=== PATIENT | female | born 1970 | race African-American/Black ===

== ENCOUNTER 2016-08-24 11:43 | Emergency (ER) | payer MEDICAID ==
[~2016-08-24] VITALS: Ht 165.1 cm; Wt 80.0 kg
[~2016-08-24 11:43] MED LIST: ACET-2178 PO; METH500T PO
[2016-08-24] MEDS ORDERED: KETOROLAC 60MG/2ML VIAL IM ONE (13:30)
[2016-08-24 13:45] VITALS: BP 158/100
== END 2016-08-24 15:01 | disposition home or self-care (01) ==
LOC: ER 13:12
DX: M54.5 Low back pain (principal); F17.200 Nicotine dependence, unspecified, uncomplicated; Z90.49 Acquired absence of other specified parts of digestive tract; Z90.710 Acquired absence of both cervix and uterus; Z87.19 Personal history of other diseases of the digestive system
CPT/HCPCS: 72114; 99285; J1885; Z7610

== ENCOUNTER → 2017-08-02 | Outpatient (CLI) | payer MEDICARE, MEDICAID | END | disposition home or self-care (01) | LOC: MRI 11:12 | PROVIDERS: ATTEND Neurological Surgery | DX: M48.061 Spinal stenosis, lumbar region without neurogenic claudication (principal); M48.07 Spinal stenosis, lumbosacral region; M47.896 Other spondylosis, lumbar region | CPT/HCPCS: 72114; 72148 ==

== ENCOUNTER 2018-03-28 11:11 | Inpatient (IN) | payer MEDICARE, MEDICAID ==
[~2018-03-28] VITALS: Ht 165.1 cm; Wt 90.7 kg
[2018-03-28] MEDS ORDERED: MORPHINE SULFATE 4 MG/ML CPJ (NOT FOR IM USE) IV STA (13:39)
[2018-03-28] MEDS ORDERED: SODIUM CHLORIDE 0.9% 1,000 ML IV ONE (13:39)
[2018-03-28] MEDS ORDERED: ONDANSETRON HCL 4MG/2ML INJ IV STA (13:39)
[2018-03-28 14:31] LABS: BASOPHILS % 0.5 % (0.0-2.0); EOSINOPHILS % 1.8 % (0.0-5.0); HEMATOCRIT. 41.1 % (36.0-48.0); HEMOGLOBIN. 13.9 g/dL (12.0-16.0); LYMPHOCYTES % 36.2 % (20.0-50.0); MEAN CORPUSCULAR HEMOGLOBIN 32.6 pg (28.0-32.0); MEAN CORPUSCULAR VOLUME 96.4 fL (81.0-99.0); MEAN PLATELET VOLUME 8.8 fl (7.4-10.4); MONOCYTES % 6.7 % (2.0-8.0); NEUTROPHILS % 54.8 % (40.0-76.0); PLATELET 272 x1000/uL (130-400); RED BLOOD CELL COUNT 4.26 mill/uL (4.2-5.4); RED CELL DISTRIBUTION WIDTH 13.4 % (11.6-14.6)
[2018-03-28 14:38] LABS: PROTHROMBIN TIME 9.8 sec (9.1-11.1)
[2018-03-28 14:40] LABS: CHLORIDE 106 mEq/L (98-107)
[2018-03-28] MEDS ORDERED: LORAZEPAM 1MG TABLET PO ONE (16:00)
[2018-03-28] MEDS ORDERED: LORAZEPAM 2MG/ML CPJ IV ONE (16:00)
[2018-03-28] MEDS ORDERED: MORPHINE SULFATE 4 MG/ML CPJ (NOT FOR IM USE) IV ONE (17:45)
[2018-03-28] MEDS ORDERED: CLONIDINE 0.2MG TABLET PO ONE (21:45)
[2018-03-28] MEDS ORDERED: HYDROMORPHONE HCL/PF 2MG/ML CPJ IV SCH (22:00)
[2018-03-28] MEDS ORDERED: NA PHOS,M-B/NA PHOS,DI-BA ENEMA 118ML PR PRN (22:30)
[2018-03-28] MEDS ORDERED: ACETAMINOPHEN 325MG TABLET PO PRN (22:30)
[2018-03-29] MEDS: HYDROMORPHONE HCL/PF 2MG/ML CPJ IV PRN ×5 (03:33→21:12)
[2018-03-29] MEDS: ONDANSETRON HCL 4MG/2ML INJ IV PRN ×3 (03:59→17:35)
[2018-03-29 04:00] VITALS: BP 147/97
[2018-03-29] MEDS ORDERED: METO-293 MT (04:21)
[2018-03-29] MEDS ORDERED: BENA40TA9 MT (04:21)
[2018-03-29] MEDS ORDERED: AMLO10TA80 MT (04:21)
[2018-03-29] MEDS ORDERED: DULO30CA51 MT (04:21)
[2018-03-29] MEDS ORDERED: GABA-531 MT (04:21)
[2018-03-29] MEDS ORDERED: INDO25CA MT (04:21)
[2018-03-29] MEDS ORDERED: ASPI-1159 MT (04:21)
[2018-03-29] MEDS ORDERED: IBUP-2029 MT (04:21)
[2018-03-29] MEDS ORDERED: CLON0.2T MT (04:21)
[2018-03-29 07:24] LABS: BASOPHILS % 0.8 % (0.0-2.0); EOSINOPHILS % 1.6 % (0.0-5.0); HEMATOCRIT. 39.4 % (36.0-48.0); HEMOGLOBIN. 13.3 g/dL (12.0-16.0); LYMPHOCYTES % 36.2 % (20.0-50.0); MEAN CORPUSCULAR HEMOGLOBIN 32.9 pg (28.0-32.0); MEAN CORPUSCULAR VOLUME 97.5 fL (81.0-99.0); MEAN PLATELET VOLUME 9.6 fl (7.4-10.4); MONOCYTES % 7.6 % (2.0-8.0); NEUTROPHILS % 53.8 % (40.0-76.0); PLATELET 210 x1000/uL (130-400); RED BLOOD CELL COUNT 4.04 mill/uL (4.2-5.4); RED CELL DISTRIBUTION WIDTH 13.2 % (11.6-14.6)
[2018-03-29 07:53] LABS: CHLORIDE 109 mEq/L (98-107)
[2018-03-29 08:00] VITALS: BP 180/115
[2018-03-29] MEDS ORDERED: DIAZ10TA4 MT (08:03)
[2018-03-29] MEDS: AMLODIPINE 10MG TABLET PO SCH (09:08)
[2018-03-29] MEDS: DULOXETINE HCL 30MG DR CAPSULE PO SCH (11:56)
[2018-03-29] MEDS: DIAZEPAM 5 MG TABLET PO PRN ×2 (11:56→21:05)
[2018-03-29 12:00] VITALS: BP 138/88
[2018-03-29] MEDS: METOCLOPRAMIDE HCL 10MG/2ML VIAL IV PRN ×2 (13:43→22:05)
[2018-03-29] MEDS ORDERED: INDOMETHACIN 25MG CAPSULE PO SCH (14:00)
[2018-03-29] MEDS ORDERED: GABAPENTIN 300MG CAPSULE PO SCH (14:00)
[2018-03-29] MEDS: CLONIDINE 0.1MG TABLET PO PRN (15:45)
[2018-03-29 16:00] VITALS: BP 179/105
[2018-03-29 20:00] VITALS: BP 147/91
[2018-03-30] VITALS: BP_SYST 133; BP_SYST 137; BP_DIAS 90; BP_DIAS 94
[2018-03-30] MEDS: HYDROMORPHONE HCL/PF 2MG/ML CPJ IV PRN ×6 (00:27→21:13)
[2018-03-30 04:00] VITALS: BP 146/90
[2018-03-30] MEDS: ONDANSETRON HCL 4MG/2ML INJ IV PRN ×3 (07:58→21:07)
[2018-03-30 08:00] VITALS: BP 159/91
[2018-03-30] MEDS: AMLODIPINE 10MG TABLET PO SCH (08:21)
[2018-03-30] MEDS: METHOCARBAMOL 500MG TABLET PO SCH (08:21)
[2018-03-30] MEDS: DULOXETINE HCL 30MG DR CAPSULE PO SCH (08:21)
[2018-03-30] MEDS ORDERED: AMLODIPINE 10MG TABLET PO SCH (09:00)
[2018-03-30] MEDS: DIAZEPAM 5 MG TABLET PO PRN ×2 (10:58→21:07)
[2018-03-30] MEDS: METOCLOPRAMIDE HCL 10MG/2ML VIAL IV PRN ×2 (11:31→18:48)
[2018-03-30 12:00] VITALS: BP 141/98
[2018-03-30] MEDS: CLONIDINE 0.1MG TABLET PO PRN (13:40)
[2018-03-30 16:00] VITALS: BP 148/96
[2018-03-30] MEDS: HYDROCODONE/ACETAMINOPHEN 5/325MG TABLET PO PRN (17:10)
[2018-03-31] VITALS: BP 141/91
[2018-03-31] MEDS: METOCLOPRAMIDE HCL 10MG/2ML VIAL IV PRN ×3 (00:23→15:41)
[2018-03-31] MEDS: HYDROMORPHONE HCL/PF 2MG/ML CPJ IV PRN ×6 (00:28→23:21)
[2018-03-31] MEDS: ONDANSETRON HCL 4MG/2ML INJ IV PRN ×2 (03:56→18:08)
[2018-03-31 04:00] VITALS: BP 175/99
[2018-03-31] MEDS: CLONIDINE 0.1MG TABLET PO PRN ×3 (06:02→20:52)
[2018-03-31 08:00] VITALS: BP 158/105
[2018-03-31] MEDS: AMLODIPINE 10MG TABLET PO SCH (09:01)
[2018-03-31] MEDS: HYDROCHLOROTHIAZIDE 25MG TABLET PO SCH (09:02)
[2018-03-31] MEDS: METHOCARBAMOL 500MG TABLET PO SCH (09:02)
[2018-03-31] MEDS: DULOXETINE HCL 30MG DR CAPSULE PO SCH (09:02)
[2018-03-31] MEDS ORDERED: HYDROMORPHONE HCL/PF 2MG/ML CPJ IV SCH (11:45)
[2018-03-31 12:00] VITALS: BP 151/112
[2018-03-31] MEDS: HYDROCODONE/ACETAMINOPHEN 5/325MG TABLET PO PRN ×2 (13:12→20:46)
[2018-03-31] MEDS ORDERED: SODIUM BICARBONATE 4% (2.4MEQ) 5ML VIAL IV ONE (13:28)
[2018-03-31] MEDS ORDERED: LIDOCAINE HCL 1% 20ML VIAL (Pyxis) INJ ONE (13:29)
[2018-03-31] MEDS: DIAZEPAM 5 MG TABLET PO PRN (15:42)
[2018-03-31 16:00] VITALS: BP 146/91
[2018-03-31 20:00] VITALS: BP 149/107
[2018-04-01] VITALS (7 sets, daily range): BP systolic 124–158; BP diastolic 43–99
[2018-04-01] MEDS: HYDROMORPHONE HCL/PF 2MG/ML CPJ IV PRN ×6 (03:35→21:24)
[2018-04-01] MEDS: DIAZEPAM 5 MG TABLET PO PRN ×2 (04:36→15:17)
[2018-04-01] MEDS: METOCLOPRAMIDE HCL 10MG/2ML VIAL IV PRN ×3 (08:06→21:23)
[2018-04-01] MEDS: HYDROCHLOROTHIAZIDE 25MG TABLET PO SCH (08:07)
[2018-04-01] MEDS: DULOXETINE HCL 30MG DR CAPSULE PO SCH (08:07)
[2018-04-01] MEDS: METHOCARBAMOL 500MG TABLET PO SCH (08:07)
[2018-04-01] MEDS: AMLODIPINE 10MG TABLET PO SCH (08:07)
[2018-04-01] MEDS: HYDROCODONE/ACETAMINOPHEN 5/325MG TABLET PO PRN (10:33)
[2018-04-01] MEDS: ONDANSETRON HCL 4MG/2ML INJ IV PRN ×2 (12:40→18:06)
[2018-04-01] MEDS: DOCUSATE SODIUM 100MG CAPSULE PO PRN (21:23)
[2018-04-02] VITALS (8 sets, daily range): BP systolic 101–156; BP diastolic 59–113
[2018-04-02] MEDS: ONDANSETRON HCL 4MG/2ML INJ IV PRN ×3 (00:43→21:48)
[2018-04-02] MEDS: DIAZEPAM 5 MG TABLET PO PRN ×3 (00:43→21:58)
[2018-04-02] MEDS: HYDROMORPHONE HCL/PF 2MG/ML CPJ IV PRN ×4 (00:43→10:44)
[2018-04-02] MEDS: METOCLOPRAMIDE HCL 10MG/2ML VIAL IV PRN (04:06)
[2018-04-02] MEDS: METHOCARBAMOL 500MG TABLET PO SCH (08:39)
[2018-04-02] MEDS: DULOXETINE HCL 30MG DR CAPSULE PO SCH (08:39)
[2018-04-02] MEDS: HYDROCHLOROTHIAZIDE 25MG TABLET PO SCH (08:40)
[2018-04-02] MEDS: AMLODIPINE 10MG TABLET PO SCH (08:40)
[2018-04-02] MEDS: HYDROCODONE/ACETAMINOPHEN 5/325MG TABLET PO PRN (12:16)
[2018-04-02] MEDS: CLONIDINE 0.1MG TABLET PO PRN (15:33)
[2018-04-02] MEDS: CYCLOBENZAPRINE 10MG TABLET PO SCH ×2 (15:53→21:45)
[2018-04-02] MEDS: HYDROCODONE/ACETAMINOPHEN 10/325MG TABLET PO PRN (16:24)
[2018-04-02] MEDS: OXYCODONE HCL 10MG TABLET SR 12HR PO SCH (21:45)
[2018-04-03] MEDS: CLONIDINE 0.1MG TABLET PO PRN (02:00)
[2018-04-03] MEDS: HYDROCODONE/ACETAMINOPHEN 10/325MG TABLET PO PRN ×3 (02:00→18:23)
[2018-04-03 04:00] VITALS: BP 104/83
[2018-04-03] MEDS: CYCLOBENZAPRINE 10MG TABLET PO SCH ×3 (06:23→21:00)
[2018-04-03 08:00] VITALS: BP 123/83
[2018-04-03] MEDS: HYDROCHLOROTHIAZIDE 25MG TABLET PO SCH (08:10)
[2018-04-03] MEDS: OXYCODONE HCL 10MG TABLET SR 12HR PO SCH ×2 (08:11→20:59)
[2018-04-03] MEDS: AMLODIPINE 10MG TABLET PO SCH (08:11)
[2018-04-03] MEDS: DULOXETINE HCL 30MG DR CAPSULE PO SCH (08:11)
[2018-04-03] MEDS: METHOCARBAMOL 500MG TABLET PO SCH (08:17)
[2018-04-03] MEDS: ONDANSETRON HCL 4MG/2ML INJ IV PRN ×3 (08:17→20:59)
[2018-04-03] MEDS: DIAZEPAM 5 MG TABLET PO PRN ×2 (11:58→21:00)
[2018-04-03 12:00] VITALS: BP 119/88
[2018-04-03] MEDS ORDERED: MORPHINE SULFATE 4 MG/ML CPJ (NOT FOR IM USE) IV SCH (14:15)
[2018-04-03 16:00] VITALS: BP 134/93
[2018-04-03] MEDS: DOCUSATE SODIUM 100MG CAPSULE PO PRN (18:23)
[2018-04-03 20:00] VITALS: BP 111/80
[2018-04-04] VITALS: BP 123/80
[2018-04-04] MEDS: HYDROCODONE/ACETAMINOPHEN 10/325MG TABLET PO PRN ×3 (00:36→10:40)
[2018-04-04] MEDS: METOCLOPRAMIDE HCL 10MG/2ML VIAL IV PRN ×2 (00:41→08:54)
[2018-04-04 04:50] VITALS: BP 118/84
[2018-04-04] MEDS: CYCLOBENZAPRINE 10MG TABLET PO SCH (05:41)
[2018-04-04 06:29] VITALS: BP 118/76
[2018-04-04] MEDS: ONDANSETRON HCL 4MG/2ML INJ IV PRN ×2 (06:34→12:32)
[2018-04-04 08:00] VITALS: BP 145/99
[2018-04-04] MEDS: HYDROCHLOROTHIAZIDE 25MG TABLET PO SCH (08:45)
[2018-04-04] MEDS: DULOXETINE HCL 30MG DR CAPSULE PO SCH (08:46)
[2018-04-04] MEDS: METHOCARBAMOL 500MG TABLET PO SCH (08:46)
[2018-04-04] MEDS: AMLODIPINE 10MG TABLET PO SCH (08:46)
[2018-04-04] MEDS: OXYCODONE HCL 10MG TABLET SR 12HR PO SCH (08:46)
[2018-04-04] MEDS ORDERED: POLYETHYLENE GLYCOL 3350 (17GM) 1 DOSE PACK PO SCH (10:15)
[2018-04-04] MEDS ORDERED: LACTULOSE 20G/30ML UDC PO PRN (10:15)
[2018-04-04] MEDS: DIAZEPAM 5 MG TABLET PO PRN (11:40)
[2018-04-04 12:00] VITALS: BP 152/104
[2018-04-04] MEDS ORDERED: MORPHINE SULFATE 4 MG/ML CPJ (NOT FOR IM USE) IV SCH (12:30)
[2018-04-04 12:32] VITALS: BP 143/105
== END 2018-04-04 14:20 | DRG 552 ==
LOC: ER 11:11 → 6EST 17:39 → EDBEDREQSVC 17:40 → EDBEDREQTM 17:40 → EDBEDREQ 17:40 → SUPCPDRO 22:16 → ENRESERV 03-29 02:14
PROVIDERS: ADMIT Hospitalist; ATTEND Hospitalist
PROC: 02HV33Z Insertion of Infusion Device into Superior Vena Cava, Percutaneous Approach (ICD-10-PCS; principal; 2018-03-31)
PROC: B5181ZA Fluoroscopy of Superior Vena Cava using Low Osmolar Contrast, Guidance (ICD-10-PCS; 2018-03-31)
PROC: B548ZZA Ultrasonography of Superior Vena Cava, Guidance (ICD-10-PCS; 2018-03-31)
DX: M47.816 Spondylosis without myelopathy or radiculopathy, lumbar region (principal); M54.5 Low back pain; I16.0 Hypertensive urgency; G89.4 Chronic pain syndrome; I10 Essential (primary) hypertension; F17.200 Nicotine dependence, unspecified, uncomplicated; Z86.73 Personal history of transient ischemic attack (TIA), and cerebral infarction without residual deficits; Z90.710 Acquired absence of both cervix and uterus; Z90.49 Acquired absence of other specified parts of digestive tract; Z98.1 Arthrodesis status; Z79.899 Other long term (current) drug therapy; Z79.82 Long term (current) use of aspirin
CPT/HCPCS: 36415; 36569; 71045; 72114; 72148; 76937; 77001; 86850; 86900; 93005; 96361; 96374; 96375; 96376; 97110; 97116; 97162; 97530; 97535; 99285; C1725; C1893; J1170; J2060; J2270; J2405; J2765; J3490; J7030

== ENCOUNTER 2018-06-16 05:17 | Inpatient (IN) | payer MEDICARE, MEDICAID ==
[~2018-06-16] VITALS: Ht 165.1 cm; Wt 90.7 kg
[~2018-06-16 05:17] MED LIST changes: +AMLO10TA80 MT; +ASPI-1159 MT; +BENA40TA9 MT; +CLON0.2T MT; +DIAZ10TA4 MT; +DULO30CA51 MT; +GABA-531 MT; +IBUP-2029 MT; -METH500T PO; +METO-293 MT
[2018-06-16] MEDS ORDERED: GELATIN SPONGE,ABSORBABLE 12-7MM SPONGE ONE (06:46)
[2018-06-16] MEDS ORDERED: THROMBIN (BOVINE) 5000 UNITS/VIAL TOP ONE (06:47)
[2018-06-16] MEDS ORDERED: BACITRACIN 50,000 UNITS/VIAL ONE (06:47)
[2018-06-16] MEDS ORDERED: LIDOCAINE HCL/EPINEPHRINE 1%-EPI 1:100,000 20 ML VIAL ONE (06:47)
[2018-06-16] MEDS ORDERED: SODIUM CHLORIDE 0.9% 1,000 ML ONE (06:47)
[2018-06-16 06:53] LABS: CLARITY URINE CLEAR (CLEAR); COLOR URINE YELLOW (YELLOW); KETONES URINE NEGATIVE (NEGATIVE); LEUKOCYTE ESTERASE URINE NEGATIVE (NEGATIVE); NITRITE URINE NEGATIVE (NEGATIVE); OCCULT BLOOD URINE NEGATIVE (NEGATIVE); PH URINE 5.5 (4.5-8.0); PROTEIN URINE NEGATIVE (NEGATIVE); SPECIFIC GRAVITY URINE 1.019 (1.005-1.030); UROBILINOGEN URINE 0.2 E.U./dL (0.2-1.0)
[2018-06-16 06:57] LABS: BASOPHILS % 1.1 % (0.0-2.0); EOSINOPHILS % 1.7 % (0.0-5.0); HEMATOCRIT. 41.2 % (36.0-48.0); HEMOGLOBIN. 13.8 g/dL (12.0-16.0); LYMPHOCYTES % 19.6 % (20.0-50.0); MEAN CORPUSCULAR HEMOGLOBIN 32.6 pg (28.0-32.0); MEAN CORPUSCULAR VOLUME 97.1 fL (81.0-99.0); MEAN PLATELET VOLUME 9.5 fl (7.4-10.4); MONOCYTES % 7.9 % (2.0-8.0); NEUTROPHILS % 69.7 % (40.0-76.0); PLATELET 265 x1000/uL (130-400); RED BLOOD CELL COUNT 4.24 mill/uL (4.2-5.4)
[2018-06-16 07:00] LABS: CHLORIDE 110 mEq/L (98-107); PARTIAL THROMBOPLASTIN TIME 32.8 sec (23.4-31.0); PROTHROMBIN TIME 9.7 sec (9.1-11.1)
[2018-06-16] MEDS ORDERED: SODIUM BICARBONATE 4% (2.4MEQ) 5ML VIAL IV ONE (07:20)
[2018-06-16] MEDS ORDERED: LIDOCAINE HCL 1% 20ML VIAL (Pyxis) INJ ONE (07:21)
[2018-06-16] MEDS ORDERED: ERGO400C PO (08:16)
[2018-06-16] MEDS ORDERED: CALC-25 PO (08:16)
[2018-06-16] MEDS ORDERED: HYDR-4005 PO (08:16)
[2018-06-16] MEDS ORDERED: CHOL500010 PO (08:16)
[2018-06-16] MEDS ORDERED: CYCL10TA7 PO (08:23)
[2018-06-16] MEDS ORDERED: MULT-1146 PO (08:23)
[2018-06-16] MEDS ORDERED: ONDANSETRON HCL 4MG/2ML INJ IV PRN (09:15)
[2018-06-16] MEDS ORDERED: MORPHINE SULFATE 4 MG/ML CPJ (NOT FOR IM USE) IV PRN (09:15)
[2018-06-16] MEDS ORDERED: FENTANYL CITRATE/PF 50MCG/ML 2ML VIAL IV PRN (09:15)
[2018-06-16] MEDS ORDERED: MEPERIDINE HCL/PF 25MG/ML CPJ IV PRN (09:15)
[2018-06-16] MEDS ORDERED: HYDROMORPHONE PCA 10MG/50ML IV PRN (10:16)
[2018-06-16] MEDS: HYDROMORPHONE HCL/PF 2MG/ML CPJ IV PRN ×2 (10:20→10:40)
[2018-06-16] MEDS ORDERED: ONDANSETRON INJ IV PRN (10:30)
[2018-06-16] MEDS ORDERED: NALOXONE INJ IV PRN (10:30)
[2018-06-16] MEDS ORDERED: DIPHENHYDRAMINE INJ IV PRN (10:30)
[2018-06-16] MEDS: DEXAMETHASONE 4MG/ML 1ML VIAL IV SCH ×3 (11:06→23:24)
[2018-06-16] MEDS ORDERED: DEXAMETHASONE 4MG/ML 1ML VIAL ONE (11:12)
[2018-06-16 11:50] VITALS: BP 111/74
[2018-06-16 12:00] VITALS: BP 111/74
[2018-06-16 16:00] VITALS: BP 112/69
[2018-06-16] MEDS ORDERED: CEFAZOLIN 1000MG PREMIX 50 ML IV SCH (16:00)
[2018-06-16] MEDS: DEXT 5%/0.45% NACL KCL 20MEQ/L 1,000 ML IV SCH (17:03)
[2018-06-16] MEDS: CEFAZOLIN 1000MG PREMIX 50 ML IV SCH (18:34)
[2018-06-16 20:00] VITALS: BP 112/77
[2018-06-16] MEDS ORDERED: HYDROCODONE/ACETAMINOPHEN 5/325MG TABLET PO PRN (23:00)
[2018-06-16] MEDS: DIAZEPAM 5 MG TABLET PO PRN (23:22)
[2018-06-16] MEDS: HYDROCODONE/ACETAMINOPHEN 5/325MG TABLET PO PRN (23:23)
[2018-06-17] VITALS: BP 137/93
[2018-06-17] MEDS: DEXT 5%/0.45% NACL KCL 20MEQ/L 1,000 ML IV SCH ×2 (02:16→14:10)
[2018-06-17] MEDS: CEFAZOLIN 1000MG PREMIX 50 ML IV SCH ×2 (02:16→09:55)
[2018-06-17] MEDS: HYDROCODONE/ACETAMINOPHEN 5/325MG TABLET PO PRN ×2 (03:29→14:12)
[2018-06-17 04:00] VITALS: BP 114/72
[2018-06-17] MEDS: DEXAMETHASONE 4MG/ML 1ML VIAL IV SCH ×3 (06:12→17:00)
[2018-06-17 08:00] VITALS: BP 134/93
[2018-06-17] MEDS: HYDROMORPHONE HCL/PF 2MG/ML CPJ IV PRN ×4 (08:17→20:30)
[2018-06-17] MEDS: CYCLOBENZAPRINE 10MG TABLET PO SCH ×2 (09:54→17:00)
[2018-06-17] MEDS: BENAZEPRIL 10MG TABLET PO SCH (09:54)
[2018-06-17] MEDS: DIAZEPAM 5 MG TABLET PO PRN (09:55)
[2018-06-17] MEDS: ONDANSETRON HCL 4MG/2ML INJ IV PRN ×2 (12:06→17:00)
[2018-06-17 12:12] VITALS: BP 127/81
[2018-06-17] MEDS: AMLODIPINE 10MG TABLET PO SCH (14:11)
[2018-06-17 16:23] VITALS: BP 124/75
[2018-06-17 20:00] VITALS: BP 142/88
[2018-06-17] MEDS: CLONIDINE 0.2MG TABLET PO SCH (20:30)
[2018-06-18] VITALS: BP 117/74
[2018-06-18] MEDS: DEXAMETHASONE 4MG/ML 1ML VIAL IV SCH ×5 (02:07→23:55)
[2018-06-18] MEDS: HYDROMORPHONE HCL/PF 2MG/ML CPJ IV PRN ×7 (02:07→21:26)
[2018-06-18] MEDS: ONDANSETRON HCL 4MG/2ML INJ IV PRN ×4 (02:20→21:26)
[2018-06-18] MEDS: DEXT 5%/0.45% NACL KCL 20MEQ/L 1,000 ML IV SCH ×2 (02:20→15:20)
[2018-06-18 04:00] VITALS: BP 134/85
[2018-06-18 08:00] VITALS: BP 129/91
[2018-06-18] MEDS: CYCLOBENZAPRINE 10MG TABLET PO SCH ×2 (09:04→16:04)
[2018-06-18] MEDS: BENAZEPRIL 10MG TABLET PO SCH (09:04)
[2018-06-18] MEDS: DIAZEPAM 5 MG TABLET PO PRN ×2 (10:18→23:43)
[2018-06-18 12:39] VITALS: BP 130/88
[2018-06-18] MEDS: AMLODIPINE 10MG TABLET PO SCH (13:03)
[2018-06-18 16:00] VITALS: BP 129/79
[2018-06-18] MEDS ORDERED: POTASSIUM CHLORIDE 20MEQ TABLET SR PO SCH (16:30)
[2018-06-18 20:00] VITALS: BP 142/91
[2018-06-18] MEDS: CLONIDINE 0.2MG TABLET PO SCH (20:38)
[2018-06-19] VITALS: BP 178/125
[2018-06-19] MEDS: MORPHINE SULFATE 4 MG/ML CPJ (NOT FOR IM USE) IV PRN ×7 (00:52→20:07)
[2018-06-19] MEDS: ONDANSETRON HCL 4MG/2ML INJ IV PRN ×2 (03:44→17:04)
[2018-06-19] MEDS: DEXT 5%/0.45% NACL KCL 20MEQ/L 1,000 ML IV SCH ×2 (03:56→17:05)
[2018-06-19 04:00] VITALS: BP 150/98
[2018-06-19] MEDS: DEXAMETHASONE 4MG/ML 1ML VIAL IV SCH ×4 (06:50→17:04)
[2018-06-19 08:00] VITALS: BP 137/83
[2018-06-19] MEDS: CYCLOBENZAPRINE 10MG TABLET PO SCH ×2 (09:45→16:57)
[2018-06-19] MEDS: BENAZEPRIL 10MG TABLET PO SCH (09:45)
[2018-06-19] MEDS: AMLODIPINE 10MG TABLET PO SCH (11:57)
[2018-06-19 12:00] VITALS: BP 137/83
[2018-06-19] MEDS: DIAZEPAM 5 MG TABLET PO PRN ×3 (12:29→20:07)
[2018-06-19 20:00] VITALS: BP 156/96
[2018-06-19] MEDS: CLONIDINE 0.2MG TABLET PO SCH (20:07)
[2018-06-20] VITALS: BP 135/87
[2018-06-20] MEDS: MORPHINE SULFATE 4 MG/ML CPJ (NOT FOR IM USE) IV PRN ×4 (00:41→11:51)
[2018-06-20 04:00] VITALS: BP 125/92
[2018-06-20] MEDS: DEXT 5%/0.45% NACL KCL 20MEQ/L 1,000 ML IV SCH (04:49)
[2018-06-20] MEDS: DEXAMETHASONE 4MG/ML 1ML VIAL IV SCH (05:03)
[2018-06-20] MEDS: ONDANSETRON HCL 4MG/2ML INJ IV PRN (05:03)
[2018-06-20] MEDS: BENAZEPRIL 10MG TABLET PO SCH (08:39)
[2018-06-20] MEDS: CYCLOBENZAPRINE 10MG TABLET PO SCH (08:40)
[2018-06-20] MEDS: DIAZEPAM 5 MG TABLET PO PRN (09:48)
[2018-06-20 12:36] VITALS: BP 121/84
== END 2018-06-20 12:50 | disposition home health service (06) | DRG 517 ==
LOC: OR 05:17 → 5EST 05:18 → 6EST 12:48
PROVIDERS: ADMIT Neurological Surgery; ATTEND Neurological Surgery
PROC: 0SP004Z Removal of Internal Fixation Device from Lumbar Vertebral Joint, Open Approach (ICD-10-PCS; principal; 2018-06-16)
PROC: B5181ZA Fluoroscopy of Superior Vena Cava using Low Osmolar Contrast, Guidance (ICD-10-PCS; 2018-06-16)
PROC: 02HV33Z Insertion of Infusion Device into Superior Vena Cava, Percutaneous Approach (ICD-10-PCS; 2018-06-16)
PROC: B548ZZA Ultrasonography of Superior Vena Cava, Guidance (ICD-10-PCS; 2018-06-16)
PROC: 0SP304Z Removal of Internal Fixation Device from Lumbosacral Joint, Open Approach (ICD-10-PCS; 2018-06-16)
PROC: 01NB0ZZ Release Lumbar Nerve, Open Approach (ICD-10-PCS; 2018-06-16)
PROC: 4A11X4G Monitoring of Peripheral Nervous Electrical Activity, Intraoperative, External Approach (ICD-10-PCS; 2018-06-16)
DX: T84.84XA Pain due to internal orthopedic prosthetic devices, implants and grafts, initial encounter (principal); M54.16 Radiculopathy, lumbar region; M48.061 Spinal stenosis, lumbar region without neurogenic claudication; Y83.8 Other surgical procedures as the cause of abnormal reaction of the patient, or of later complication, without mention of misadventure at the time of the procedure; Z98.1 Arthrodesis status; Y92.89 Other specified places as the place of occurrence of the external cause
CPT/HCPCS: 36415; 36569; 72100; 76937; 77001; 86850; 86900; 88300; 88304; 88311; 95863; 95925; 95926; 97116; 97163; 97530; 97760; C1725; J0690; J1100; J1170; J1200; J1644; J2250; J2270; J2405; J2704; J2710; J3010; J3490; J7030; J7050